=== PATIENT | female | born 1985 | race Caucasian/White ===

== ENCOUNTER 2023-10-27 16:04 | Emergency (ER) | payer BC, OTHER ==
[2023-10-27] MEDS ORDERED: ACETAMINOPHEN 500 MG TAB ONE (17:07)
[2023-10-27] MEDS ORDERED: CYCLOBENZAPRINE 10 MG TAB ONE (17:08)
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
[2023-10-27 19:22] VITALS: BP 128/80; O2SAT 99
== END 2023-10-27 19:16 | disposition home or self-care (01) ==
LOC: ER 16:04
DX: M54.2 Cervicalgia (principal); R07.9 Chest pain, unspecified; V59.40XA Driver of pick-up truck or van injured in collision with unspecified motor vehicles in traffic accident, initial encounter
CPT/HCPCS: 71045; 72040; 99283